=== PATIENT | male | born 1990 | race Caucasian/White ===

== ENCOUNTER → 2022-01-15 15:21 | Outpatient (BNVA) | payer MEDICAID, SELFPAY | PROVIDERS: PCP Nurse Practitioner Family; Visit Provider Urology | DX: N52.9 Male erectile dysfunction, unspecified (principal) | CPT/HCPCS: 99202 ==

== ENCOUNTER → 2022-12-15 09:51 | Outpatient (BNVA) | payer OTHER, SELFPAY | PROVIDERS: PCP Nurse Practitioner Family; Visit Provider Nurse Practitioner Family | DX: N52.9 Male erectile dysfunction, unspecified (principal) | CPT/HCPCS: 99212 ==

== ENCOUNTER 2023-06-17 09:22 | Outpatient (AMB) | payer OTHER, SELFPAY ==
--- NOTE | 2023-06-17 09:33 | A.OFFVIS_ITS ---
Intake Intake Visit Reasons: 6m follow up Intake Note: Patient is present for follow up erectile dysfunction Urology Medications: tadalafil Blood Thinner: none Staff Engineer Required: No Accompanied by: Self / Same As Patient Allergies No Known Allergies Allergy (Verified 06/18/23 08:46) Medication List - Last Reconciled 06/18/23 by JEN Randolph bupropion HCl 300 mg PO QAM bupropion HCl 150 mg PO DAILY buspirone 22.5 mg PO cholecalciferol (vitamin D3) 0 mcg PO fluticasone propionate 50 mcg/actuation 2 sprays intranasal DAILY lamotrigine 0 mg PO loratadine 10 mg PO DAILY losartan 50 mg PO DAILY melatonin 5 mg PO BEDTIME omeprazole 20 mg PO tadalafil 5 mg PO DAILY PRN 30 days tadalafil (Cialis) 5 mg PO DAILY 90 days trazodone 25 mg PO DAILY HPI HPI Comments History of Present Illness Details Julian is a pleasant 32-year-old male patient of Dr. Koch. He has a past medical history of Washington's esophagus, major depression, alcohol dependence however has been sober for 3.5 years, hypertension, and obesity.He presents to the office today for follow-up of his erectile dysfunction. In discussion with the patient today he reports to be doing and feeling well. When asked he reports compliance with 5 mg of Cialis daily. He had previously tried reducing daily dosage to 3 times a week however felt he started having issues with maintaining his erections. He discusses having lost approximately 40 lb over the last few months with better eating habits. Discussed at length importance of losing weight, eating healthy, engaging in activity such as brisk walking, and adequate sleep in relation to erectile dysfunction as well as overall health and well-being. Discussed workup for sleep apnea as patient does endorse to nocturia 2-5 times per night, fatigue, and snoring. Discussed at length lifestyle modifications for improvement in maintaining erections as well as for overall health and well-being. He otherwise denies urinary urgency, urinary frequency, incontinence, hematuria, dysuria, foul smelling urine, changes to urinary stream, flank pain, fever, and or chills. He is happy with his current voiding parameters. In office urinalysis results reviewed with the patient today. He otherwise offers no issues or concerns at this time. In review of patients chart it appears testosterone free and total 12/21-- 312 and 61.5. [facility] Medical History Barretts esophagus Major depression Alcohol dependence HTN (hypertension) Obesity Review of Systems Const Reports as per HPI Eyes Reports no additional complaints ENT Reports no additional complaints Card Reports as per HPI Resp Reports no additional complaints GI Reports as per HPI Reports as per HPI Musc Reports no additional complaints Neuro Reports as per HPI Psych Reports as per HPI Endo Reports no additional complaints Paxton/Lymph Reports no additional complaints Aller/Immun Reports no additional complaints Physical Exam Const General: cooperative, comfortable, no acute distress, well developed, alert and awake Nutritional Appearance: overweight Orientation/consciousness: patient oriented x3 Limitations: no limitations HEENT Head: Yes normal to inspection, Yes normocephalic and Yes atraumatic Ears: hearing grossly normal bilaterally Eyes General: appearance normal, both eyes and all related structures Neck Neck: Yes normal visual inspection and Yes trachea midline Chest Chest palpation & inspection: normal inspection of the chest Resp Effort & Inspection: normal respiratory effort and able to speak in complete sentences Cardio Rate: regular rate GI Inspection: Yes normal to inspection General: Yes no CVA tenderness Back/Spine/Pelvis Back: no CVA tenderness Skin General skin exam: no rashes or lesions noted Neuro General: patient oriented x3 Extrem General: Yes normal to inspection Psych Appearance: grossly normal and well kempt Mental Status: mental status grossly normal Speech and movement: Normal speech and movement present and Clear speech present Affect: normal affect Attitude: cooperative Thought process: Normal thought process present Thought content: Normal thought content present Insight: Fair insight present (Psych) Judgement: Fair judgement present (Psych) Results AMB Urinalysis, Automated UA Leukoctes 0 Fela/uL Last Edit by [employer] on 06/17/23 09:40 UA Nitrite Negative Last Edit by [employer] Brianna on 06/17/23 09:40 UA Urobilinogen 0.2 mg/dL Last Edit by [employer] Brianna on 06/17/23 09:40 UA Protein 0 mg/dL Last Edit by [employer] on 06/17/23 09:40 UA pH 6.0 Last Edit by [employer] Brianna on 06/17/23 09:40 UA Blood 0 Duane/uL Last Edit by Macy Reed on 06/17/23 09:40 UA Specific [place] 1.015 Last Edit by Macy Reed on 06/17/23 09:40 UA Ketone Negative Last Edit by Macy Reed on 06/17/23 09:40 UA Bilirubin 0 mg/dL Last Edit by Macy Reed on 06/17/23 09:40 UA Glucose 0 mg/dL Last Edit by Macy Reed on 06/17/23 09:40 Results Reviewed Results Reviewed: Laboratory Last Values Urine pH (Auto) 6.0 06/17/23 09:38 Specific [place] (Auto) 1.015 06/17/23 09:38 Urine Protein (Auto) 0 mg/dL 06/17/23 09:38 Glucose (UA)(Auto) 0 mg/dL 06/17/23 09:38 Urine Ketones (Auto) Negative 06/17/23 09:38 Urine Blood (Auto) 0 Duane/uL 06/17/23 09:38 Urine Nitrite (Auto) Negative 06/17/23 09:38 Urine Bilirubin (Auto) 0 mg/dL 06/17/23 09:38 Urine Urobilinogen (Auto) 0.2 mg/dL 06/17/23 09:38 Leukocyte Esterase (Auto) 0 Fela/uL 06/17/23 09:38 Assessment & Plan Assessment & Plan (1) Erectile dysfunction: Code(s): N52.9 - Male erectile dysfunction, unspecified (2) Nocturia: Code(s): R35.1 - Nocturia (3) Snoring: Code(s): R06.83 - Snoring (4) Fatigue: Code(s): R53.83 - Other fatigue Plan In office urinalysis results reviewed with the patient today. Continue Cialis 5 mg daily as discussed and prescribed; refill provided Discussed at length and stressed the importance of weight management and daily activity with brisk walking to assist with improvement in maintaining erections as well as for overall health and well-being. Discussed referral for further assessment evaluation of question of sleep apnea; Orders submitted Discussed limiting fluids 3-4 hours prior to bed to assist with decreasing episodes of nocturia. Continue with lifestyle modifications to assist with erectile dysfunction as well as overall health and well-being. Will obtain testosterone free and total Discussed bladder triggers/irritants. Follow-up in 3 months with labs to be completed prior; or sooner with any issues, concerns, and or questions. Orders: Orders AMB Urinalysis Automated 06/17/23 Z13.9 - Encounter for screening, unspecified Testosterone, Free/Total 06/17/23 N52.9 - Male erectile dysfunction, unspecified RT home sleep study 06/17/23 N52.9 - Male erectile dysfunction, unspecified, R06.83 - Snoring, R35.1 - Nocturia, R53.83 - Other fatigue Medications: Discontinued tadalafil administer approximately 30min before sexual activity; do not use more than 1 dose per 24hrs Discontinued Reason: Doctor's Order 5 mg PO DAILY 30 days PRN 30 tabs 5RF sexual activity Patient Instructions: The patient had an opportunity to ask questions regarding the treatment plan. All questions were answered. Physical exam, labs, and imaging were discussed and reviewed in detail. As well as risks, benefits, and discussion of treatment choices. No major barriers to understanding were identified. The patient expressed understanding and agreement with the above treatment plan. The patient was made aware they should contact our office by phone for worsening of their current condition, the appearance of new symptoms, or with any questions or concerns. Compliance is encouraged with any medications and follow up testing that is ordered. It is a privilege to be allowed the opportunity to participate in? your urological care.? Again, if you have any questions or concerns If you have any questions or concerns please do not hesitate to contact me. The office is [phone]. This note is constructed using voice recognition software. While every effort has been made to ensure accuracy bench boring machine operator errors may have been included. Yours sincerely, JEN Randolph Coding Level of Care Code Est Pt Level 3 (71536) Diagnoses Erectile dysfunction N52.9 Nocturia R35.1 Snoring R06.83 Fatigue R53.83
== END 2023-06-17 10:03 | disposition home or self-care (01) ==
PROVIDERS: Visit Provider Nurse Practitioner Family
DX: N52.9 Male erectile dysfunction, unspecified (principal); R35.1 Nocturia; R06.83 Snoring; R53.83 Other fatigue
CPT/HCPCS: 99213

== ENCOUNTER → 2023-06-17 09:22 | Outpatient (BNVA) | payer OTHER, SELFPAY | PROVIDERS: Visit Provider Nurse Practitioner Family | DX: N52.9 Male erectile dysfunction, unspecified (principal); R35.1 Nocturia; R06.83 Snoring; R53.83 Other fatigue | CPT/HCPCS: 81003 ==

== ENCOUNTER → 2023-08-08 09:02 | Outpatient (REF) | payer OTHER, SELFPAY | LOC: HO.SL 09:02 | PROVIDERS: PCP Nurse Practitioner Family; Visit Provider Nurse Practitioner Family | DX: G47.33 Obstructive sleep apnea (adult) (pediatric) (principal); R35.1 Nocturia; R53.83 Other fatigue; R06.83 Snoring; N52.9 Male erectile dysfunction, unspecified | CPT/HCPCS: 95806 ==

== ENCOUNTER → 2023-08-08 09:12 | Outpatient (BNV) | payer OTHER, SELFPAY | PROVIDERS: PCP Nurse Practitioner Family; Visit Provider Internal Medicine | DX: G47.33 Obstructive sleep apnea (adult) (pediatric) (principal) | CPT/HCPCS: 95806 ==

== ENCOUNTER 2023-09-02 15:13 | Outpatient (AMB) | payer OTHER, SELFPAY ==
--- NOTE | 2023-09-02 10:07 | MHC.OFFVIS ---
Intake Vital Signs 09/02/23 15:21 Height 6 ft Weight 227 lb BMI 30.8 BP 124/74 Blood Pressure Location Lt brachial Position Sitting Respiration 14 Pulse 86 Pulse Source Pulse Oximeter Pulse Oximetry (%) 98 Oxygen Delivery Method Room Air Intake Visit Reasons: Sleep apnea Allergies No Known Allergies Allergy (Verified 09/02/23 15:20) Medication List - Last Reconciled 09/02/23 by Dilcia Persaud, INTERVENTIONAL RADIOLOGIST bupropion HCl 300 mg PO QAM bupropion HCl 150 mg PO DAILY buspirone 22.5 mg PO cholecalciferol (vitamin D3) 0 mcg PO fluticasone propionate 50 mcg/actuation 2 sprays intranasal DAILY lamotrigine 0 mg PO loratadine 10 mg PO DAILY losartan 50 mg PO DAILY melatonin 5 mg PO BEDTIME omeprazole 20 mg PO tadalafil (Cialis) 5 mg PO DAILY 90 days trazodone 25 mg PO DAILY HPI Sleep apnea HPI Details Julian is a pleasant 32 year old male, never smoker, with underlying hypertension. He was referred by urology after recent home sleep study revealed moderate KATYA. He was initially sent for a sleep study due to symptoms of daytime fatigue, loud snoring, witnessed apneas and paroxysmal nocturnal dyspnea. He presents today to discuss CPAP therapy. Of note, he reports recent intentional loss of 40 lbs with better eating habits. He denies any personal or family history of respiratory conditions. He currently denies any respiratory symptoms. [facility] Medical History Barretts esophagus Major depression Alcohol dependence HTN (hypertension) Obesity Review of Systems Const Denies chills, Denies excessive sweating, Denies fever(s), Denies headache(s) and Denies night sweats Eyes Denies dry eyes, Denies irritation and Denies itchy eyes ENT Reports Normal hearing present, Denies headache(s), Denies nasal congestion, Denies nasal discharge, Denies post nasal drip and Denies sore throat Card Denies chest pain, Denies chest pain at rest, Denies chest pain with activity, Denies claudication, Denies leg edema, Denies dyspnea, Denies dyspnea on exertion and Denies orthopnea Resp Denies chest congestion, Denies cough, Denies excessive phlegm production, Denies pain on inspiration, Denies pain with cough, Denies dyspnea, Denies dyspnea on exertion, Denies stridor and Denies wheezing Musc Denies myalgias Neuro Reports Normal hearing present and Denies headache(s) Endo Denies excessive sweating Paxton/Lymph Denies lymphadenopathy Aller/Immun Denies itchy eyes, Denies seasonal rhinorrhea and Denies wheezing Physical Exam Vital Signs: Last Vital Signs Pulse 86 09/02/23 15:21 Resp 14 09/02/23 15:21 BP 124/74 09/02/23 15:21 Pulse Ox 98 09/02/23 15:21 Oxygen Delivery Method Room Air 09/02/23 15:21 BMI result Body Mass Index 30.8 Const General: cooperative, healthy appearing, comfortable, no acute distress, well developed and alert Nutritional Appearance: obese Orientation/consciousness: patient oriented x3 Limitations: no limitations HEENT Head: Yes normal to inspection, Yes normocephalic and Yes atraumatic Ears: hearing grossly normal bilaterally and external ears normal Eyes General: appearance normal, both eyes and all related structures Eyelids: Yes eyelids normal Sclerae: sclerae normal EOM: EOMs intact bilaterally Neck Neck: Yes normal visual inspection and Yes no lymphadenopathy Lymphatic: no lymphadenopathy noted Chest Chest palpation & inspection: normal inspection of the chest Resp Effort & Inspection: normal respiratory effort, able to speak in complete sentences, no audible wheezes, no cough, no stridor, not tachypneic, no tripod positioning and no use of accessory muscles Auscultation: clear to auscultation bilaterally Cardio Jugular venous distension: no JVD Rate: regular rate Rhythm: regular rhythm Skin Other: warm, dry General skin exam: no rashes or lesions noted Neuro General: patient oriented x3 Cranial nerves: Yes Normal hearing present Cognition (Neuro): normal cognition Gait exam (Neuro): Normal gait present Extrem General: Yes normal to inspection, Yes capillary refill normal, Yes no clubbing, cyanosis or edema and Yes no pedal edema Psych Appearance: grossly normal and well kempt Speech and movement: Normal speech and movement present and Clear speech present Affect: normal affect Attitude: cooperative Thought process: Normal thought process present Thought content: Normal thought content present Insight: Good insight present (Psych) Judgement: Good judgement present (Psych) Results Reviewed Results Reviewed: Assessment & Plan Assessment & Plan (1) Moderate obstructive sleep apnea: Code(s): G47.33 - Obstructive sleep apnea (adult) (pediatric) Plan Reviewed sleep study results with patient which revealed an AHI of 23 and no significant nocturnal hypoxia. Since patient is quite symptomatic, will start CPAP therapy. Will send in prescription for APAP mode and pressure settings of 6-16 cm with close monitoring for compliance and benefits. Sleep hygiene education reviewed. He is aware if there are any issues with the mask or CPAP machine, he will call the office. All questions were answered and patient is in agreement of plan. Will follow up in 8 weeks. Coding Level of Care Code New Pt Level 3 (76095) Diagnoses Moderate obstructive sleep apnea G47.33
[2023-09-02 15:21] VITALS: BP 124/74; PULSE 86; RESP 14; O2SAT 98; BMI 30.8
== END 2023-09-02 15:52 | disposition home or self-care (01) ==
PROVIDERS: PCP Nurse Practitioner Family; Visit Provider Nurse Practitioner Family
DX: G47.33 Obstructive sleep apnea (adult) (pediatric) (principal)
CPT/HCPCS: 99203

== ENCOUNTER → 2023-09-02 15:13 | Outpatient (BNVA) | payer OTHER, SELFPAY | PROVIDERS: PCP Nurse Practitioner Family; Visit Provider Nurse Practitioner Family ==

== ENCOUNTER 2023-09-21 11:07 | Outpatient (AMB) | payer OTHER, SELFPAY ==
--- NOTE | 2023-09-21 11:10 | A.OFFVIS_ITS ---
Intake Intake Visit Reasons: 3m/lab(set) Intake Note: Patient is present for follow up erectile dysfunction Urology Medications: tadalafil Blood Thinner: none Counselor Nurses[employer] Required: No Accompanied by: Self / Same As Patient Allergies No Known Allergies Allergy (Verified 09/21/23 21:00) Medication List - Last Reconciled 09/21/23 by SAVANNAH Randolph- bupropion HCl 300 mg PO QAM bupropion HCl 150 mg PO DAILY buspirone 22.5 mg PO cholecalciferol (vitamin D3) 0 mcg PO fluticasone propionate 50 mcg/actuation 2 sprays intranasal DAILY lamotrigine 0 mg PO loratadine 10 mg PO DAILY losartan 50 mg PO DAILY melatonin 5 mg PO BEDTIME omeprazole 20 mg PO tadalafil (Cialis) 5 mg PO DAILY 90 days trazodone 25 mg PO DAILY HPI HPI Comments History of Present Illness Details Julian is a pleasant 33-year-old male patient of Dr. Koch. He has a past medical history of Washington's esophagus, major depression, alcohol dependence however has been sober for 4 years, hypertension, and obesity. He presents to the office today for follow-up of his erectile dysfunction. In discussion with the patient today he reports to be doing and feeling well. When asked he reports compliance with 5 mg of Cialis daily. When asked he does report noting improvement in erections with 5 mg of Cialis daily. He discusses having completed sleep study as ordered. It appears patient was diagnosed with sleep apnea and will be receiving his CPAP machine within the next few weeks. He discusses how he continues to lose weight as he has been eating healthier. Discussed at length importance of losing weight, eating healthy, engaging in activity such as brisk walking, and adequate sleep in relation to erectile dysfunction as well as overall health and well-being. Discussed at length lifestyle modifications for improvement in maintaining erections as well as for overall health and well-being. He otherwise denies urinary urgency, urinary frequency, incontinence, hematuria, dysuria, foul smelling urine, changes to urinary stream, flank pain, fever, and or chills. He is happy with his current voiding parameters. In office urinalysis results reviewed with the patient today. He otherwise offers no issues or concerns at this time. 07/09:testosterone 312 free and total 61 .5. [facility] Medical History Barretts esophagus Major depression Alcohol dependence HTN (hypertension) Obesity Review of Systems Const Reports as per HPI Eyes Reports no additional complaints ENT Reports no additional complaints Card Reports as per HPI Resp Reports no additional complaints GI Reports as per HPI Reports as per HPI Musc Reports no additional complaints Neuro Reports as per HPI Psych Reports as per HPI Endo Reports no additional complaints Paxton/Lymph Reports no additional complaints Aller/Immun Reports no additional complaints Physical Exam Const General: cooperative, comfortable, no acute distress, well developed, alert and awake Nutritional Appearance: overweight Orientation/consciousness: patient oriented x3 Limitations: no limitations HEENT Head: Yes normal to inspection, Yes normocephalic and Yes atraumatic Ears: hearing grossly normal bilaterally Eyes General: appearance normal, both eyes and all related structures Neck Neck: Yes normal visual inspection and Yes trachea midline Chest Chest palpation & inspection: normal inspection of the chest Resp Effort & Inspection: normal respiratory effort and able to speak in complete s entences Cardio Rate: regular rate GI Inspection: Yes normal to inspection General: Yes no CVA tenderness Back/Spine/Pelvis Back: no CVA tenderness Skin General skin exam: no rashes or lesions noted Neuro General: patient oriented x3 Extrem General: Yes normal to inspection Psych Appearance: grossly normal and well kempt Mental Status: mental status grossly normal Speech and movement: Normal speech and movement present and Clear speech present Affect: normal affect Attitude: cooperative Thought process: Normal thought process present Thought content: Normal thought content present Insight: Fair insight present (Psych) Judgement: Fair judgement present (Psych) Results AMB Urinalysis, Automated UA Leukoctes 0 Fela/uL Last Edit by Macy Reed on 09/21/23 11:24 UA Nitrite Negative Last Edit by [employer] Reed on 09/21/23 11:24 UA Urobilinogen 0.2 mg/dL Last Edit by [employer] Reed on 09/21/23 11:24 UA Protein 0 mg/dL Last Edit by [employer] Reed on 09/21/23 11:24 UA pH 7.5 Last Edit by [employer] Reed on 09/21/23 11:24 UA Blood 0 Duane/uL Last Edit by [employer] Reed on 09/21/23 11:24 UA Specific [place] 1.010 Last Edit by Macy Reed on 09/21/23 11:24 UA Ketone Negative Last Edit by Macy Reed on 09/21/23 11:24 UA Bilirubin 0 mg/dL Last Edit by Macy [employer] on 09/21/23 11:24 UA Glucose 0 mg/dL Last Edit by Macy [employer] on 09/21/23 11:24 Results Reviewed Results Reviewed: Laboratory Last Values Urine pH (Auto) 7.5 09/21/23 11:14 Specific [place] (Auto) 1.010 09/21/23 11:14 Urine Protein (Auto) 0 mg/dL 09/21/23 11:14 Glucose (UA)(Auto) 0 mg/dL 09/21/23 11:14 Urine Ketones (Auto) Negative 09/21/23 11:14 Urine Blood (Auto) 0 Duane/uL 09/21/23 11:14 Urine Nitrite (Auto) Negative 09/21/23 11:14 Urine Bilirubin (Auto) 0 mg/dL 09/21/23 11:14 Urine Urobilinogen (Auto) 0.2 mg/dL 09/21/23 11:14 Leukocyte Esterase (Auto) 0 Fela/uL 09/21/23 11:14 Assessment & Plan Assessment & Plan (1) Erectile dysfunction: Code(s): N52.9 - Male erectile dysfunction, unspecified (2) Nocturia: Code(s): R35.1 - Nocturia (3) Snoring: Code(s): R06.83 - Snoring (4) Fatigue: Code(s): R53.83 - Other fatigue Plan In office urinalysis results reviewed with the patient today. Continue Cialis 5 mg daily as discussed and prescribed; refill provided Discussed at length and stressed the importance of weight management and daily activity with brisk walking to assist with improvement in maintaining erections as well as for overall health and well-being. Continue to follow-up with pulmonology as discussed Continue with lifestyle modifications to assist with erectile dysfunction as well as overall health and well-being. Will obtain testosterone free and total prior to next office visit in 3 months Discussed bladder triggers/irritants. Follow-up in 3 months with labs to be completed prior; or sooner with any issues, concerns, and or questions. Orders: Orders Testosterone, Free/Total 3 Months E29.1 - Testicular hypofunction, N52.9 - Male erectile dysfunction, unspecified, R35.1 - Nocturia AMB Urinalysis Automated Today Z13.9 - Encounter for screening, unspecified Medications: Refilled tadalafil (Cialis) [facility] DR33 [id number] 5 mg PO DAILY 90 tabs 4RF 90 days Patient Instructions: The patient had an opportunity to ask questions regarding the treatment plan. All questions were answered. Physical exam, labs, and imaging were discussed and reviewed in detail. As well as risks, benefits, and discussion of treatment choices. No major barriers to understanding were identified. The patient expressed understanding and agreement with the above treatment plan. The patient was made aware they should contact our office by phone for worsening of their current condition, the appearance of new symptoms, or with any questions or concerns. Compliance is encouraged with any medications and follow up testing that is ordered. It is a privilege to be allowed the opportunity to participate in? your urological care.? Again, if you have any questions or concerns If you have any questions or concerns please do not hesitate to contact me. The office is [phone]. This note is constructed using voice recognition software. While every effort has been made to ensure accuracy chronic care nurse errors may have been included. Yours sincerely, JEN Randolph Coding Level of Care Code Est Pt Level 3 (49769) Diagnoses Erectile dysfunction N52.9 Nocturia R35.1 Snoring R06.83 Fatigue R53.83
== END 2023-09-21 11:44 | disposition home or self-care (01) ==
LOC: HO.HUSH 11:08
PROVIDERS: PCP Nurse Practitioner Family; Visit Provider Nurse Practitioner Family
DX: N52.9 Male erectile dysfunction, unspecified (principal); R35.1 Nocturia; R06.83 Snoring; R53.83 Other fatigue
CPT/HCPCS: 99213

== ENCOUNTER → 2023-09-21 11:07 | Outpatient (BNVA) | payer OTHER, SELFPAY | PROVIDERS: PCP Nurse Practitioner Family; Visit Provider Nurse Practitioner Family | DX: N52.9 Male erectile dysfunction, unspecified (principal); R35.1 Nocturia; R06.83 Snoring; R53.83 Other fatigue; Z79.899 Other long term (current) drug therapy | CPT/HCPCS: 81003 ==

== ENCOUNTER 2024-01-11 08:48 | Outpatient (AMB) | payer OTHER, SELFPAY ==
--- NOTE | 2024-01-11 08:55 | A.OFFVIS_ITS ---
Intake Visit Reasons: 3m follow up testosterone labs (set) Intake Note: Patient presents for tele visit follow up on: erectile dysfunction and lab results Testosterone: 326; Free Testosterone: 10.1 Urology Medications: tadalafil Blood Thinner: none Director Of Sales And Marketing Required: No Accompanied by: Self / Same As Patient Allergies No Known Allergies Allergy (Verified 01/11/24 09:22) Medication List - Last Reconciled 01/11/24 by SAVANNAH Randolph- bupropion HCl XL 300 mg PO QAM bupropion HCl XL 150 mg PO DAILY buspirone 22.5 mg PO cholecalciferol (vitamin D3) 0 mcg PO fluticasone propionate 50 mcg/actuation 2 sprays intranasal DAILY lamotrigine 0 mg PO loratadine 10 mg PO DAILY losartan 50 mg PO DAILY melatonin 5 mg PO BEDTIME omeprazole 20 mg PO tadalafil (Cialis) 5 mg PO DAILY 90 days trazodone 25 mg PO DAILY HPI Comments Details: Julian is a pleasant 33-year-old male patient of Dr. Koch. He has a past medical history of Washington's esophagus, major depression, alcohol dependence however has been sober for 4-5 years, hypertension, and obesity. He is being followed up on today via video telehealth for his erectile dysfunction. In discussion with the patient today he reports to be doing and feeling well. He reports having called pulmonology earlier this week as he has been unable to be compliant with his CPAP machine as he feels he is unable to sleep with it on. He reports following up with Katarina Bojorquez and is being referred to Plastic surgery for evaluation of inspire device. When asked he reports compliance with 5 mg of Cialis daily. He does report noting improvement in erections with 5 mg of Cialis daily. He discusses feeling ftigued upon wakening. He discusses how he continues to lose weight as he has been eating healthier. Discussed at length importance of losing weight, eating healthy, engaging in activity such as brisk walking, and adequate sleep in relation to erectile dysfunction as well as overall health and well-being. Discussed at length lifestyle modifications for improvement in maintaining erections as well as for overall health and well- being. He otherwise denies urinary urgency, urinary frequency, incontinence, hematuria, dysuria, foul smelling urine, changes to urinary stream, flank pain, fever, and or chills. He is happy with his current voiding parameters. He otherwise offers no issues or concerns at this time. Recent labs reviewed with the patient today as noted and trended below: Testosterone: 07/09 312, 01/08 326 Free and total Testosterone: 07/09 61.5, 01/08 10.1 [facility] Medical History Barretts esophagus Major depression Alcohol dependence HTN (hypertension) Obesity Review of Systems Const Reports as per HPI Eyes Reports no additional complaints ENT Reports no additional complaints Card Reports as per HPI Resp Reports no additional complaints GI Reports as per HPI Reports as per HPI Musc Reports no additional complaints Neuro Reports as per HPI Psych Reports as per HPI Endo Reports no additional complaints Paxton/Lymph Reports no additional complaints Aller/Immun Reports no additional complaints Physical Exam Const General: cooperative, healthy appearing, comfortable, no acute distress, well developed, alert and awake Orientation/consciousness: patient oriented x3 Resp Effort & Inspection: normal respiratory effort and able to speak in complete sentences Neuro General: patient oriented x3 Psych Appearance: grossly normal and well kempt Mental Status: mental status grossly normal Speech and movement: Clear speech present Affect: normal affect Attitude: cooperative Thought process: Normal thought process present Thought content: Normal thought content present Insight: Fair insight present (Psych) Judgement: Fair judgement present (Psych) Telehealth Telehealth Telehealth Platform: [facility] Location of provider rendering services: practice address Location of patient: address on file Patient Identification confirmed using: Name, : Yes Telehealth method: video Patient verbally consented to treatment: Yes Patient verbally consented to billing insurance company: Yes Patient informed of any privacy concerns related to visit: Yes Minutes spent on Phone/Video with Pt.: 15 Assessment & Plan Assessment & Plan (1) Sleep apnea: Code(s): G47.30 - Sleep apnea, unspecified Category: Medical (2) Erectile dysfunction: Code(s): N52.9 - Male erectile dysfunction, unspecified Category: Medical Plan Recent labs reviewed with the patient today as noted and trended above. Continue Cialis 5 mg daily. Information provided for Dr. Nando Coleman's office. Discussed at length lifestyle modifications to assist with ED. Discussed importance of managing sleep apnea for improvement in erections as well as overall health and well-being. He currently denies any bothersome urinary issues or concerns. He reports be happy with current voiding parameters. Follow-up in 3 months; or sooner with any issues, concerns, and or questions. Patient Instructions: The patient had an opportunity to ask questions regarding the treatment plan. All questions were answered. Physical exam, labs, and imaging were discussed and reviewed in detail. As well as risks, benefits, and discussion of treatment choices. No major barriers to understanding were identified. The patient expressed understanding and agreement with the above treatment plan. The patient was made aware they should contact our office by phone for worsening of their current condition, the appearance of new symptoms, or with any questions or concerns. Compliance is encouraged with any medications and follow up testing that is ordered. It is a privilege to be allowed the opportunity to participate in? your urological care.? Again, if you have any questions or concerns If you have any questions or concerns please do not hesitate to contact me. The office is [phone]. This note is constructed using voice recognition software. While every effort has been made to ensure accuracy inspector watch assembly errors may have been included. Yours sincerely, JEN Randolph Coding Level of Care Code Tele Est Pt Level 3 (11053) Diagnoses Sleep apnea G47.30 Erectile dysfunction N52.9
== END 2024-01-11 09:26 | disposition home or self-care (01) ==
LOC: HO.HUSH 08:48
PROVIDERS: PCP Nurse Practitioner Family; Visit Provider Nurse Practitioner Family
DX: G47.30 Sleep apnea, unspecified (principal); N52.9 Male erectile dysfunction, unspecified
CPT/HCPCS: 99213

== ENCOUNTER → 2024-01-11 08:48 | Outpatient (BNVA) | payer OTHER, SELFPAY | PROVIDERS: PCP Nurse Practitioner Family; Visit Provider Nurse Practitioner Family ==

== ENCOUNTER 2024-10-10 10:19 | Outpatient (REF) | payer OTHER, SELFPAY ==
[2024-10-16 08:49] LABS: Testosterone, Free 65 pg/mL (35.0-155.0); Testosterone, Total 377 ng/dL (250-1100)
== END 2024-10-10 10:20 | disposition home or self-care (01) ==
LOC: HO.LAB 10:19
PROVIDERS: PCP Nurse Practitioner Family; Visit Provider Nurse Practitioner Family
DX: E29.1 Testicular hypofunction (principal); R35.1 Nocturia; N52.9 Male erectile dysfunction, unspecified
CPT/HCPCS: 36415; 84402; 84403

== ENCOUNTER 2024-11-26 14:57 | Outpatient (AMB) | payer OTHER, SELFPAY ==
--- NOTE | 2024-11-26 15:31 | MHC.OFFVIS ---
Intake Visit Reasons: F/u Intake Note: Patient is present for F/U Urology Medication:TTADALAFIL Antibiotic Allergy:NONE Blood Thinner:NONE Salesforce Trainer Required: No Allergies No Known Allergies Allergy (Verified 11/26/24 15:32) PFSH Medical History Barretts esophagus Major depression Alcohol dependence HTN (hypertension) Obesity Coding
--- NOTE | 2024-11-26 15:37 | A.OFFVIS_ITS ---
Intake Visit Reasons: F/u Allergies No Known Allergies Allergy (Verified 11/26/24 15:37) Medication List - Last Reconciled 11/26/24 by SAVANNAH Randolph- bupropion HCl XL 300 mg PO QAM bupropion HCl XL 150 mg PO DAILY buspirone 22.5 mg PO cholecalciferol (vitamin D3) 0 mcg PO fluticasone propionate 50 mcg/actuation 2 sprays intranasal DAILY lamotrigine 0 mg PO loratadine 10 mg PO DAILY losartan 50 mg PO DAILY melatonin 5 mg PO BEDTIME tadalafil (Cialis) 5 mg PO DAILY 90 days trazodone 25 mg PO DAILY HPI Comments Details: Julian is a pleasant 34-year-old male patient of Dr. Koch. He has a past medical history of Washington's esophagus, major depression, alcohol dependence however has been sober for 4-5 years, hypertension, and obesity. He is being followed up on today via video telehealth for his erectile dysfunction. In discussion with the patient today he reports to be doing and feeling well. He denies having had any bothersome urinary issues or concerns since his last follow-up. He reports compliance with 5 mg of Cialis daily in discusses how helpful he feels this has been in maintaining his erections. He continues to follow-up with pulmonology through [facility] as he is enquiring potential inspire device for his sleep apnea. He discusses how he continues to lose weight as he has been eating healthier. However does discuss having had some stressful events with change in jobs over the last few months. Discussed at length importance of losing weight, eating healthy, engaging in activity such as brisk walking, and adequate sleep in relation to erectile dysfunction as well as overall health and well-being. Discussed at length lifestyle modifications for improvement in maintaining erections as well as for overall health and well- being. He denies urinary urgency, urinary frequency, incontinence, hematuria, dysuria, foul smelling urine, changes to urinary stream, flank pain, fever, and or chills. He is happy with his current voiding parameters. He otherwise offers no issues or concerns at this time. Recent labs reviewed with the patient today as noted and trended below: Testosterone: 07/09 312, 01/08 326, 10/09 377 Free and total Testosterone: 07/09 61.5, 01/08 10.1, 10/09 65 [facility] Medical History Barretts esophagus Major depression Alcohol dependence HTN (hypertension) Obesity Review of Systems Const Reports as per HPI Eyes Reports no additional complaints ENT Reports no additional complaints Card Reports as per HPI Resp Reports no additional complaints GI Reports as per HPI Reports as per HPI Musc Reports no additional complaints Neuro Reports as per HPI Psych Reports as per HPI Endo Reports no additional complaints Paxton/Lymph Reports no additional complaints Aller/Immun Reports no additional complaints Physical Exam Const General: cooperative, healthy appearing, comfortable, no acute distress, well developed, alert and awake Orientation/consciousness: patient oriented x3 Resp Effort & Inspection: normal respiratory effort and able to speak in complete sentences Neuro General: patient oriented x3 Psych Appearance: grossly normal and well kempt Mental Status: mental status grossly normal Speech and movement: Clear speech present Affect: normal affect Attitude: cooperative Thought process: Normal thought process present Thought content: Normal thought content present Insight: Fair insight present (Psych) Judgement: Fair judgement present (Psych) Telehealth Telehealth Telehealth Platform: Sealed Location of provider rendering services: practice address Location of patient: address on file Patient Identification confirmed using: Name, : Yes Telehealth method: video Patient verbally consented to treatment: Yes Patient verbally consented to billing insurance company: Yes Patient informed of any privacy concerns related to visit: Yes Minutes spent on Phone/Video with Pt.: 15 Assessment & Plan Assessment & Plan (1) Erectile dysfunction: Code(s): N52.9 - Male erectile dysfunction, unspecified Category: Medical Plan Recent testosterone labs were reviewed with the patient today; as noted above. He continues to follow-up with pulmonology regarding inspire device for sleep apnea. He currently denies any bothersome urinary issues or concerns. He reports be happy with current voiding parameters. Continue Cialis 5 mg daily; refill provided. We discussed correlation of sleep apnea in relation to erectile dysfunction as well as overall health and well-being. Follow-up in 6 months; or sooner with any issues, concerns, and or questions. Medications: Refilled tadalafil (Cialis) [facility] [address]33 [id number] 5 mg PO DAILY 90 tabs 3RF 90 days Patient Instructions: The patient had an opportunity to ask questions regarding the treatment plan. All questions were answered. Physical exam, labs, and imaging were discussed and reviewed in detail. As well as risks, benefits, and discussion of treatment choices. No major barriers to understanding were identified. The patient expressed understanding and agreement with the above treatment plan. The patient was made aware they should contact our office by phone for worsening of their current condition, the appearance of new symptoms, or with any questions or concerns. Compliance is encouraged with any medications and follow up testing that is ordered. It is a privilege to be allowed the opportunity to participate in? your urological care.? Again, if you have any questions or concerns If you have any questions or concerns please do not hesitate to contact me. The office is [phone]. This note is constructed using voice recognition software. While every effort has been made to ensure accuracy auto repair technician errors may have been included. Yours sincerely, JEN Randolph Coding Level of Care Code Tele Est Pt Level 3 (84405) Diagnoses Erectile dysfunction N52.9
== END 2024-11-26 15:53 | disposition home or self-care (01) ==
LOC: HO.HUSH 14:57
PROVIDERS: PCP Nurse Practitioner Family; Visit Provider Nurse Practitioner Family
DX: N52.9 Male erectile dysfunction, unspecified (principal)
CPT/HCPCS: 98005

== ENCOUNTER → 2024-11-26 14:57 | Outpatient (BNVA) | payer OTHER, SELFPAY | PROVIDERS: PCP Nurse Practitioner Family; Visit Provider Nurse Practitioner Family ==

== ENCOUNTER 2025-03-25 15:22 | Outpatient (REF) | payer OTHER, SELFPAY ==
--- NOTE | ~2025-03-25 | XR_ITS ---
EXAMINATION: XR THORACIC SPINE CLINICAL INFORMATION: PAIN COMPARISON: None available. TECHNIQUE: AP lateral and swimmer's projections. FINDINGS: There is multilevel endplate sclerosis and small marginal osteophyte formation throughout the axial skeleton. There is 20% volume loss of the vertebral bodies midportion of the thoracic spine. S-shaped curvature of the thoracolumbar spine. No acute cortical disruption. No lytic or blastic lesions. XR/XR thoracic spine 3V IMPRESSION: Multilevel spondylosis and mild scoliosis, thoracic spine. Electronically signed by: Govind Rivas MD 03/25/2025 03:45 PM EDT
--- OUTSIDE RECORDS SUMMARY | 2025-03-25 18:26 | XMS_ITS | Encounter Summary ---
Author Organization [facility] Address [address] [facility] [address] [place] [address] Phone Care Team Providers Care Industrial Cleaner Name Role Phone Myles Turcios MD Unavailable Amalia Saenz NP Unavailable [phone] Vicente Hale MD Unavailable [phone] [facility] MD Unavailable Vicente Hale MD Unavailable [phone] [facility] MD Unavailable [phone] Vicente Hale MD Unavailable [phone] Rogelio Suazo MD Unavailable Feng Rolle MD Unavailable [phone] Nando Loja MD, PhD Unavailable Vicente Hale MD Unavailable [phone] Malina Wheeler PA-C Unavailable Pcp, Unknown Primary Care Provider Unavailabl e Encounter Details Date Type Department Care Team (Late st Contact Info) Description 02/12/2020 Transcribe Orders [facility] Department [address] [place], [place] [id number] Vicente Hale MD [address] [place] [address] [email or web address] Encounter for laboratory testing for COVID-19 virus (Primary Dx) Social History Tobacco Use Types Packs/Day Years Used Date Smoking Tobacco: Never Smokeless Tobacco: Never Alcohol Use Standard Drinks/Week Comments Yes 0 (1 standard drink = 0.6 oz pur e alcohol) 4 nips and a beer with dinner Sex and Gender Information Value Date Recorded Sex Assigned at Not on file Legal Sex Male 5:41 PM EST Gender Identity Not on file Sexual Orientation Not on file Occupation Industry Job Start Date Job End Date Unemployed Not on file Not on file Not on file documented as of this encounter Plan of Treatment Not on file documented as of this encounter Results * COVID-19 PCR Order (02/16/2020 12:54 PM EDT) Specimen Source 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) [facility] COVID Testing Status Sent to [facility] Micro Lab [facility] Other 02/16/2020 12:5 4 PM EDT 02/16/2020 1:57 PM EDT us Vicente Hale MD BODY FLUIDS AND STOOLS ORDERABL ES Final Result Performing Organization Address City/State/[facility] Co de Phone Number [facility] [address] [place] [address] documented in this encounter Visit Diagnoses Diagnosis Encounter for laboratory testing for COVID-19 virus- Primary documented in this encounter Care Teams Industrial Cleaner Relationship Specialty Start Date End Date Pcp, Unknown PCP - General 12/30/23 Myles Turcios MD [email or web address] Internal Medicine 11/07/17 12/29/23 Amalia Saenz NP [address] [place] [address] 11/07/17 12/29/23 Vicente Hale MD [address] [place] [address] [email or web address] Insurance Assigned Provider 04/22/18 05/24/20 Feng Rolle MD [address] [place] [address] [email or web address] Insurance Assigned Provider 05/24/20 08/23/20 Vicente Hale MD [address] [place] [address] [email or web address] Insurance Assigned Provider 08/23/20 09/20/20 Feng Rolle MD [address] [place] [address] [email or web address] Insurance Assigned Provider 09/20/20 05/23/21 Vicente Hale MD [address] [place] [address] [email or web address] Insurance Assigned Provider 05/23/21 08/23/21 Rogelio Suazo MD [address] [place] [address] [place] [phone] [email or web address] Insurance Assigned Provider 08/23/21 09/20/21 Feng Rolle MD [address] [place] [address] [email or web address] Insurance Assigned Provider 09/20/21 05/23/22 Nando Loja MD, PhD [address] [address] [email or web address] Consulting Provider Hematology 10/10/21 09/15/23 Vicente Hale MD [address] [place] [address] [email or web address] Insurance Assigned Provider 05/23/22 08/21/22 Malina Wheeler PA-C [address] [place] [address] [email or web address] Physician Track Vehicle Repairer Hematology 07/05/22 12/29/23 documented as of this encounter Additional Source Comments The information contained in this document represents components of the legal health record. It is not the complete legal health record.[facility]
--- OUTSIDE RECORDS SUMMARY | 2025-03-25 18:26 | XMS_ITS | Encounter Summary ---
Author Organization [facility] Address [address] [facility] [address] [place] [address] Phone Care Team Providers Care Airline Managerial Supervisor Name Role Phone Myles Turcios MD Unavailable Amalia Saenz NP Unavailable Feng Rolle MD Unavailable Vicente Hale MD Unavailable [phone] Rogelio Suazo MD Unavailable [facility] gamb[facility] MD Unavailable [phone] Nando Loja MD, PhD Unavailable Vicente Hale MD Unavailable [phone] Malina Wheeler PA-C Unavailable Pcp, Unknown Primary Care Provider Unavailabl e Encounter Details Date Type Department Care Team (Latest Contact Info) Description 05/11/2021 Transcribe Orders [facility] Laboratory [address] [phone] Pancho Spence MD [address] [address] Washington's esophagus without dysplasia (Primary Dx); Gastroesophageal reflux disease with esophagitis, unspecified whether hemorrhage; Rectal bleeding; Bleeding internal hemorrhoids Social History Tobacco Use Types Packs/Day Years Used Date Smoking Tobacco: Never Smokeless Tobacco: Never Alcohol Use Standard Drinks/Week Comments Not Currently 0 (1 standard drink = 0.6 oz pur e alcohol) quit 14 months ago Sex and Gender Information Value Date Recorded [...] documented as of this encounter Results * (ABNORMAL) Ferritin (05/11/2021 9:20 AM EDT) Pathologist [facility] FERRITIN 16(L) 30 - 400 ug/L [facility] Blood 05/11/2021 9:20 AM EDT 05/11/2021 9:25 AM EDT us Pancho Spence MD LAB BLOOD ORDERABLES Final Resul t Performing Organization Address City/[facility]/ZIP Co de Phone Number [address] [address] * (ABNORMAL) Iron and iron binding capacity (05/11/2021 9:20 AM EDT) Pathologist [facility] IRON 47 45 - 160 ug/dL [facility] IRON BINDING CAPACITY 336 228 - 428 ug/dL [facility] TRANSFERRIN SATURAT. 14(L) 20 - 55 % [facility] Blood 05/11/2021 9:20 AM EDT 05/11/2021 9:25 AM EDT us Pancho Spence MD LAB BLOOD ORDERABLES Final Resul t [address] [address] * (ABNORMAL) CBC (05/11/2021 9:20 AM EDT) Pathologist [facility] WBC 7.31 4.00 - 11.00 K/uL [facility] RBC 5.69 4.23 - 5.82 M/uL [facility] HGB 13.3(L) 13.4 - 17.5 g/dL [facility] HCT 42.1 37.0 - 51.0 % [facility] PLT 258 140 - 430 K/uL [facility] MCV 74.0(L) 78.0 - 97.0 fL [facility] MCH 23.4(L) 25.0 - 33.0 pg [facility] MCHC 31.6(L) 32.0 - 36.0 g/dL [facility] RDW 18.5(H) 11.0 - 15.0 % [facility] MPV 10.7 8.4 - 12.8 fl [facility] NRBC 0.00 0 /100 WBCs [facility] ABSOLUTE NRBC 0.00 0 K/uL [facility] Blood 05/11/2021 9:20 AM EDT 05/11/2021 9:25 AM EDT us Pancho Spence MD LAB BLOOD ORDERABLES Final Resul t [facility] [address] [place] [address] documented in this encounter Visit Diagnoses Diagnosis Washington's esophagus without dysplasia- Primary Gastroesophageal reflux disease with esophagitis, unspecified whether hemorrhage Rectal bleeding Hemorrhage of rectum and anus Bleeding internal hemorrhoids Internal hemorrhoids with other complication documented in this encounter Care Teams Airline Managerial Supervisor Relationship Specialty Start Date End Date Pcp, Unknown PCP - General 12/30/23 Myles Turcios MD [email or web address] Internal Medicine 11/07/17 12/29/23 Amalia Saenz NP [address] [place] [address] 11/07/17 12/29/23 Feng Rolle MD [address] [place] [address] [email or web address] Insurance Assigned Provider 09/20/20 05/23/21 Vicente Hale MD [address] [place] [address] [email or web address] Insurance Assigned Provider 05/23/21 08/23/21 Rogelio Suazo MD [address] [place] [phone] [email or web address] Insurance Assigned Provider 08/23/21 09/20/21 Feng Rolle MD [address] [place] [address] [email or web address] Insurance Assigned Provider 09/20/21 05/23/22 Nando Loja MD, PhD [address] [place] [phone] [email or web address] Consulting Provider Hematology 10/10/21 09/15/23 Vicente Hale MD [address] [place] [address] [email or web address] Insurance Assigned Provider 05/23/22 08/21/22 Malina Wheeler PA-C [address] [place] [address] [email or web address] Physician Catering Director Hematology 07/05/22 12/29/23 documented as of this encounter Additional Source Comments The information contained in this document represents components of the legal health record. It is not the complete legal health record.[facility]
--- OUTSIDE RECORDS SUMMARY | 2025-03-25 18:26 | XMS_ITS | Encounter Summary ---
Author Organization [facility] Address [address] [facility] [address] [place] [address] Phone Care Team Providers Care Institute Scientist Name Role Phone Myles Turcios MD Unavailable Amalia Saenz NP Unavailable Nando Loja MD, PhD Unavailable Malina Wheeler PA-C Unavailable [phone] Pcp, Unknown Primary Care Provider Unavailabl e Encounter Details Date Type Department Care Team (Late st Contact Info) Description 04/14/2023 Procedure Pass [facility] Endoscopy Admitting Dept Virtual Department [address] [place] [address] [id number] Social History Tobacco Use Types Packs/Day Years Used Date Smoking Tobacco: Never Smokeless Tobacco: Never Alcohol Use Standard Drinks/Week Comments Not Currently 0 (1 standard drink = 0.6 oz pur e alcohol) quit 14 months ago Education Answer Date Recorded Are you interested in more education? Not on hilario e 11/13/2022 Are you concerned about learning? Not on file 11/13/2022 No 11/13/2022 No 11/13/2022 Digital Access Answer Date Recorded No 12/08/2022 No 12/08/2022 Reliable internet access at home? Not on file 12/08/2022 Device with a working camera? Not on file Intimate Partner Violence Answer Date R ecorded Are you denied basic needs s uch as food, clothing, or medical care? No 04/14/2023 In the past 12 months have y ou been in a relationship with a person who hurts, threatens, or tries to control you? No 04/14/2023 Are you denied basic needs s uch as food, clothing, or medical care? No 04/14/2023 In the past 12 months have y ou been in a relationship with a person who hurts, threatens, or tries to control you? No 04/14/2023 Sex and Gender Information Value Date Recorded Sex Assigned at Not on file Legal Sex Male 5:41 PM EST Gender Identity Not on file Sexual Orientation Not on file Occupation Industry Job Start Date Job End Date Unemployed Not on file Not on file Not on file documented as of this encounter Plan of Treatment Not on file documented as of this encounter Visit Diagnoses Not on filedocumented in this encounter Care Teams Institute Scientist Relationship Specialty Start Date End Date Pcp, Unknown PCP - General 12/30/23 Myles Turcios MD [email or web address] Medicine 11/07/17 12/29/23 Amalia Saenz NP [address] [place] [address] 11/07/17 12/29/23 Nando Loja MD, PhD [address] [place] [address] [email or web address] Consulting Provider Hematology 10/10/21 09/15/23 Malina Wheeler PA-C [address] [place] [address] [email or web address] Physician Pressure Dispatcher Hematology 07/05/22 12/29/23 documented as of this encounter Additional Source Comments The information contained in this document represents components of the legal health record. It is not the complete legal health record.[facility]
--- OUTSIDE RECORDS SUMMARY | 2025-03-25 18:26 | XMS_ITS | Encounter Summary ---
Author Organization [facility] Address [facility] [employer] [facility] [address] [place] [address] Phone Care Team Providers Care Housekeeping Attendant Name Role Phone Myles Turcios MD Unavailable Amalia Saenz MANAGER SUPPLY CHAIN PLANNING Unavailable Feng Rolle MD Unavailable Vicente Hale MD Unavailable [phone] Rogelio Suazo MD Unavailable Feng Rolle MD Unavailable [phone] Nando Loja MD, PhD Unavailable Vicente Hale MD Unavailable [phone] Malina Wheeler PA-C Unavailable [phone] Pcp, Unknown Primary Care Provider Unavailabl e Encounter Details Date Type Department Care Team (Late st Contact Info) Description 03/19/2021 Procedure Pass [facility] Endoscopy Admitting Dept Virtual Department [address] [place] [address] Social History Tobacco Use Types Packs/Day Years [...] on filedocumented in this encounter Care Teams Housekeeping Attendant Relationship Specialty Start Date End Date Pcp, Unknown PCP - General 12/30/23 Myles Turcios MD [email or web address] Internal Medicine 11/07/17 12/29/23 Amalia Saenz NP [address] [place] [address] 11/07/17 12/29/23 Feng Rolle MD [address] [place] [address] [email or web address] Insurance Assigned Provider 09/20/20 05/23/21 Vicente Hale MD [address] [place] [address] [email or web address] Insurance Assigned Provider 05/23/21 08/23/21 Rogelio Suazo MD [address] [place] [phone] [email or web address] Insurance Assigned Provider 08/23/21 09/20/21 Feng Rolle MD [address] [place] [address] [email or web address] Insurance Assigned Provider 09/20/21 05/23/22 Nando Loja MD, PhD [address] [address] [email or web address] Consulting Provider Hematology 10/10/21 09/15/23 Vicente Hale MD [address] [place] [address] [email or web address] Insurance Assigned Provider 05/23/22 08/21/22 Malina Wheeler PA-C [address] [place] [address] [email or web address] Physician Custodian Athletic Equipment Hematology 07/05/22 12/29/23 documented as of this encounter Additional Source Comments The information contained in this document represents components of the legal health record. It is not the complete legal health record.[facility]
--- OUTSIDE RECORDS SUMMARY | 2025-03-25 18:26 | XMS_ITS | Clinical Summary ---
Author Organization [facility] Address [address] [address] Phone Care Team Providers Care Sheet Metal Superintendent Name Role Phone Pcp, Unknown Primary Care Provider Unavailabl e Allergies No known active allergies Medications buPROPion (WELLBUTRIN SR) 150 MG SR 12 hr tablet Take 150 mg by mouth daily. Active buPROPion (WELLBUTRIN) 100 MG immediate release tablet Take 100 mg by mouth daily. Active escitalopram oxalate (LEXAPRO) 10 MG tablet Take 10 mg by mouth daily. Active busPIRone (BUSPAR) 15 MG tablet Take 15 mg by mouth 2 (two) times a day. Active hydroCHLOROthia zide (MICROZIDE) 12.5 mg capsule Take 12.5 mg by mouth daily. Active losartan (COZAAR) 50 MG tablet Take 50 mg by mouth daily. Active MELATONIN ORAL Take 1 tablet by mouth nightly at bedtime. Active omeprazole (PRILOSEC) 20 MG capsule Take 20 mg by mouth daily. Active traZODone (DESYREL) 50 MG tablet Take 50 mg by mouth nightly at bedtime. Active lamoTRIgine (LAMICTAL) 25 MG IMMEDIATE release tablet Take 37.5 mg by mouth daily. 03/15/2023 Active buPROPion (WELLBUTRIN XL) 300 MG ER 24 hr tablet Take 1 tablet by mouth every morning. 02/21/2023 Active buPROPion (WELLBUTRIN XL) 150 MG ER 24 hr tablet TAKE 1 TABLET BY MOUTH EVERY DAY TAKE WITH 300MG TABLET FOR TOTAL DOSE OF 450MG 03/15/2023 Active tadalafiL (CIALIS) 5 MG tablet Take 1 tablet by mouth every morning. 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 Overview (09/07/2014): Marcellus de la Tourette's syndrome Immunizations Immunization Administration Dates Next Due COVID-19 (Pre-05/09) Pfizer Vaccine, mRNA, PF 11/09/2020 DTaP, unspecified formulation 08/29/1995 ,03/27/1992,03/29/1991,1990,1990 Hepatitis A, Unspecified 10/02/1998,03/27/1998,0 02/20/1998 Hib, unspecified formulation 12/27/1991, 03/29/1991,02/01/1991,1990 Influenza Quadrivalent Prese rvative Free IM 04/13/2023,09/03/2022,06/23/2021,2019,06/07/2018 MMR 08/29/1995,12/27/1991 Polio, Unspecified Formulation 6,03/27/1992,02/01/1991,1990 Td, unspecified formulation 07/18/2011, 3 Tdap 10/27/2021,06/07/2018 Family History Medical History Relation Comments No Known Problems Brother 1 Other Brother 2 Half-sibling fro m father Heart attack Father Age 60s Parkinson's disease Father No Known Problems Mother Other Sister Half-sibling fro m father Breast cancer Neg Hx Colon cancer Neg Hx Diabetes Neg Hx Prostate cancer Neg Hx Stroke Neg Hx Relation Status Comments Brother 1 Alive Brother 2 Alive Father (Age 70) Maternal Grandfather Maternal Grandmother Mother Alive Paternal Grandfather Paternal Grandmother Sister Alive Social History Tobacco Use Types Packs/Day Years [...] file Not on file Not on file Last Filed Vital Signs Vital Sign Reading Time Taken Comments Blood Pressure 123/79 12/26/2023 5:42 PM EDT Pulse 75 12/26/2023 5:42 PM EDT Temperature 36.6 C (97.8 F) 12/26/2023 5:42 PM EDT Respiratory Rate 12 12/26/2023 5:42 PM EDT Oxygen Saturation 97% 12/26/2023 5:42 PM EDT Inhaled Oxygen Concentration - - Weight 102.1 kg (225 lb) 04/13/2023 1:03 PM EDT Height 182.9 cm (6') 04/13/2023 1:03 PM EDT Body Mass Index 30.52 04/13/2023 1:03 PM EDT Plan of Treatment Health Maintenance Due Date Last Done Comments DEPRESSION SCREENING 2002 HIV ONE-TIME SCREENING (18-65 YEARS) 2008 CREATININE LEVEL 11/07/2018 11/07/2017, 05/27/2013 POTASSIUM LEVEL 11/07/2018 11/07/2017, 05/27/2013 COVID-19 VACCINE ( season) 2024 09/03/2022, 07/15/2021, 07/15/2021, Additional history exists Adult Td,Tdap Booster 10/28/2031 10/27/2021 , 06/07/2018, 07/18/2011, Additional history exists HIB VACCINES Completed 12/27/1991, 03/18, 02/01/1991, Additional history exists HEPATITIS A VACCINES Completed 10/02/1998, 03/27/1998, 02/20/1998 HEPATITIS C SCREENING Completed 04/11/2020 SMOKING STATUS SCREENING (Once After 26 Yrs) Completed 12/26/2023 MENINGOCOCCAL VACCINES (ACWY) Aged Out No longer eligible based on patient's age to complete this topic MENINGOCOCCAL VACCINES (B) Aged Out N o longer eligible based on patient's age to complete this topic PNEUMOCOCCAL VACCINES (0-49 years) Aged Out No longer eligible based on patient's age to complete this topic Medical Devices Not on file Procedures Procedure Name Priority Date/Time Associated Diagnosis Comments COMPREHENSIVE METABOLIC PANEL Routine 11/07/2017 2:20 PM EDT Non morbid obesity Alcohol abuse from Last 3 Months or Most Recently Relevant to Health Maintenance Results * (ABNORMAL) Comprehensive metabolic panel (11/07/2017 2:20 PM EDT) SODIUM 142 133 - 146 mmol/L [facility] POTASSIUM 5.1 3.3 - 5.1 mmol/L [facility] CHLORIDE 100 96 - 108 mmol/L [facility] CO2 29 21 - 35 mmol/L [facility] BUN 12 6 - 19 mg/dL [facility] CREATININE 0.80 0.5 - 1.5 mg/dL [facility] GLUCOSE 110(H) 70 - 99 mg/dL [facility] ALBUMIN 4.8 3.9 - 4.8 g/dL [facility] TOTAL PROTEIN 8.2(H) 6.5 - 8.0 g/dL [facility] CALCIUM 9.9 8.4 - 10.3 mg/dL [facility] ALKALINE PHOSPHATASE 72 39 - 117 U/L [facility] TOTAL BILIRUBIN 0.4 0.0 - 1.2 mg/dL [facility] AST 25 0 - 37 U/L [facility] ALT 43(H) 0 - 40 U/L [facility] GLOBULIN 3.4 1 - 4.8 g/dL [facility] EGFR >120 >59 mL/min/1.7 3m2 [facility] Comment:If patient is black, multiply result by 1.159. The eGFR calculation has changed from the MDRD equation to the CKD-EPI equation as of September 20, 2017. ANION GAP 18 10 - 20 mmol/L [facility] Blood 11/07/2017 2:20 PM EDT 11/07/2017 2:26 PM EDT Kavita Stock STOCKROOM CLERK LAB BLOOD ORDERABLES Ann-Marie ascencio Result Performing Organization Address City/State/[facility] Co de Phone Number [address] [address] from Last 3 Months or Most Recently Relevant to Health Maintenance Insurance [facility] DIRECT [employer] [place] [address] [place] [address] [place] [address] [place] [address] [employer] [place] [place] [address] [employer] Care Teams Sheet Metal Superintendent Relationship Specialty Start Date End Date Pcp, Unknown PCP - General 12/30/23 Additional Source Comments The information contained in this document represents components of the legal health record. It is not the complete legal health record.[facility]
--- OUTSIDE RECORDS SUMMARY | 2025-03-25 18:26 | XMS_ITS | Encounter Summary ---
Author Organization [facility] Address [address] [employer] Management [employer] [facility] [address] [place] [address] Phone Care Team Providers Care Screen Printing Inspector Name Role Phone Kavita Stock CNP Primary Care Provider [phone] Myles Turcios MD Unavailable [phone] Amalia Saenz NP Unavailable Vicente Hale MD Unavailable [phone] Feng Rolle MD Unavailable [phone] Vicente Hale MD Unavailable [phone] Feng Rolle MD Unavailable Vicente Hale MD Unavailable [phone] Rogelio Suazo MD Unavailable [facility] Unavailable [phone] Nando Loja MD, PhD Unavailable [phone] Vicente Hale MD Unavailable [phone] Malina Wheeler PA-C Unavailable Pcp, Unknown Primary Care Provider Unavailabl e Encounter Details Date Type Department Care Team (Late st Contact Info) Description 06/07/2018 Ancillary Orders Virtual Department [address] [place] [address] Aminata Koch, ZULY [address] [place] [address] Paresthesia Social History Tobacco Use Types Packs/Day Years [...] documented as of this encounter Results * CT HEAD WITHOUT CONTRAST (06/20/2018 11:06 AM EST) Anatomical Region Laterality Modality Head Computed Tomogra phy 06/20/2018 11:0 9 AM EST Impressions 06/20/2018 11:13 AM EST Otherwise likely a prominent left-sided Virchow-José space the examination is unremarkable. No definitive explanation for bilateral facial paresthesias/numbness noted. TOTAL CTDIvol: 52.70 mGy S/S: Bilateral facial paresthesias/numbness. . POS - [id number] Narrative 06/20/2018 11:13 AM EST COMPARISON: None TECHNIQUE: Nonenhanced head CT from skull base to vertex with multi-planar reformats. Manual dose reduction technique tailored for patient and site of imaging. CT HEAD FINDINGS: The ventricular system is of normal size and position. No extra axial fluid collection or mass effect is seen. No shift of midline structures is noted. There is an area low-density evident in the left external capsule region which may be a prominent Virchow-José space. No mass effect is seen. No findings of definitive acute infarct or acute intracranial hemorrhage are evident. The sinuses are clear. There is normal aeration of the mastoid air cells. The cerebellar tonsils are normal in position. Sella turcica is unremarkable. Procedure Note Prem Salinas MD - 06/20/2018 COMPARISON: None TECHNIQUE: Nonenhanced head CT from skull base to vertex with multi- planarreformats. Manual dose reduction technique tailored for patient and siteof imaging. CT HEAD FINDINGS: The ventricular system is of normal size and position. No extra axial fluid collection or mass effect is seen. No shift ofmidline structures is noted. There is an area low-density evident in the left external capsule regionwhich may be a prominent Virchow-José space. No mass effect is seen. No findings of definitive acute infarct or acute intracranial hemorrhageare evident. The sinuses are clear. There is normal aeration of the mastoid aircells. The cerebellar tonsils are normal in position. Sella turcica isunremarkable. IMPRESSION: Otherwise likely a prominent left-sided Virchow-José space theexamination is unremarkable. No definitive explanation for bilateralfacial paresthesias/numbness noted. TOTAL CTDIvol: 52.70 mGy S/S: Bilateral facial paresthesias/numbness. . POS - [id number] Aminata Koch ROD CUP FILLER IMG CT HEAD/NECK Final Re sult documented in this encounter Visit Diagnoses Diagnosis Paresthesia Disturbance of skin sensation Paresthesia Disturbance of skin sensation documented in this encounter Care Teams Screen Printing Inspector Relationship Specialty Start Date End Date Kavita Stock CNP [address] [place] [address], [address] [place] [address] [email or web address] PCP - General Family Medicine 11/07/17 06/19/18 Pcp, Unknown PCP - General 12/30/23 Myles Turcios MD [address] [place] [address], [address] [place] [address] [email or web address] Medicine 11/07/17 12/29/23 Amalia Saenz NP [address] [place] [address] 11/07/17 12/29/23 Vicente Hale MD [address] [place] [phone] [email or web address] Insurance Assigned Provider 04/22/18 05/24/20 Feng Rolle MD [address] [place] [address] [email or web address] Insurance Assigned Provider 05/24/20 08/23/20 Vicente Hale MD [address] [place] [address] [email or web address] Insurance Assigned Provider 08/23/20 09/20/20 Feng Rolle MD [address] [place] [address] [email or web address] Insurance Assigned Provider 09/20/20 05/23/21 Vicente Hale MD [address] [place] [address] [email or web address] Insurance Assigned Provider 05/23/21 08/23/21 Rogelio Suazo MD [address] [place] [address] [address] [place] [phone] [email or web address] Insurance Assigned Provider 08/23/21 09/20/21 Feng Rolle MD [address] [place] [address] Insurance Assigned Provider 09/20/21 05/23/22 Nando Loja MD, PhD [address] [address] [email or web address] Consulting Provider Hematology 10/10/21 09/15/23 Vicente Hale MD [address] [place] [phone] Insurance Assigned Provider 05/23/22 08/21/22 Malina Wheeler PA-C [address] [place] [phone] Physician Blanket Winder Helper Hematology 07/05/22 12/29/23 documented as of this encounter Additional Source Comments The information contained in this document represents components of the legal health record. It is not the complete legal health record.[facility]
== END 2025-03-25 15:23 | disposition home or self-care (01) ==
LOC: HO.XRAY 15:22
PROVIDERS: Visit Provider Nurse Practitioner Women's Health
DX: M54.6 Pain in thoracic spine (principal)
CPT/HCPCS: 72072

== ENCOUNTER → 2025-03-25 15:35 | Outpatient (BNV) | payer OTHER, SELFPAY | PROVIDERS: Visit Provider Radiology Diagnostic Radiology | DX: M54.6 Pain in thoracic spine (principal) | CPT/HCPCS: 72072 ==

== ENCOUNTER 2025-04-25 11:47 | Outpatient (REF) | payer OTHER, SELFPAY ==
--- NOTE | ~2025-04-25 | XR_ITS ---
Exam: Five-view lumbar spine TECHNIQUE: AP, lateral, lateral spot, and bilateral oblique x-rays lumbar spine History of low back pain COMPARISON: None FINDINGS: The stomach, small, and large bowel gas is visible. There are 5 non-rib bearing lumbar segments. There is mild wedging of T12. T12-L1: There is mild disc space narrowing. L1-L2: There is mild disc space narrowing. L2-L3: There is subtle retrolisthesis and mild disc space narrowing with small endplate osteophytes. L3-L4: There is mild to moderate disc space narrowing with subtle retrolisthesis and endplate osteophytes. L4-L5: There is a pars interarticularis defects with grade 1 anterolisthesis. There is moderate disc space narrowing and endplate osteophytes. L5-S1: Unremarkable XR/XR lumbar spine 4V min IMPRESSION: L4-5 demonstrates pars interarticularis defects with grade 1 anterolisthesis. There is also moderate narrowing of the disc space. Mild wedging of T12 is likely physiologic in nature. Correlate for signs and symptoms of acute pain in this region. Electronically signed by: Efrain Hurst MD 04/25/2025 12:52 PM EDT
== END 2025-04-25 11:48 | disposition home or self-care (01) ==
LOC: HO.XRAY 11:47
PROVIDERS: PCP Nurse Practitioner Family; Visit Provider Nurse Practitioner Women's Health
DX: M47.816 Spondylosis without myelopathy or radiculopathy, lumbar region (principal)
CPT/HCPCS: 72110

== ENCOUNTER → 2025-04-25 12:35 | Outpatient (BNV) | payer OTHER, SELFPAY | PROVIDERS: PCP Nurse Practitioner Family; Visit Provider Radiology Diagnostic Radiology | DX: M43.16 Spondylolisthesis, lumbar region (principal) | CPT/HCPCS: 72110 ==

== ENCOUNTER 2025-04-26 14:06 | Outpatient (RCR) | payer OTHER, SELFPAY ==
[2025-03-08 13:03] VITALS: BP 118/73; PULSE 93
== END 2025-04-26 14:55 | disposition home or self-care (01) ==
LOC: HO.PT 14:06
PROVIDERS: PCP Nurse Practitioner Family; Visit Provider Nurse Practitioner Women's Health
DX: M54.2 Cervicalgia (principal)
CPT/HCPCS: 97110; 97112; 97161; 97530

== ENCOUNTER 2025-05-27 09:24 | Outpatient (AMB) | payer OTHER, SELFPAY ==
--- NOTE | 2025-05-27 09:25 | A.OFFVIS_ITS ---
Intake Visit Reasons: 6m follow up Intake Note: Patient presents for 6 mo follow up Referral to Surveying Crew Rodman : has contacted roll finisher juan j of inspire sleep apnea device and it was not approved by insurance Urology Medications: tadalafil Blood Thinner: none Hair Machine Operator Required: No Accompanied by: Self / Same As Patient Allergies No Known Allergies Allergy (Verified 05/27/25 21:41) Medication List - Last Reconciled 05/27/25 by SAVANNAH Randolph- bupropion HCl XL 300 mg PO QAM bupropion HCl XL 150 mg PO DAILY buspirone 22.5 mg PO cholecalciferol (vitamin D3) 0 mcg PO fluticasone propionate 50 mcg/actuation 2 sprays intranasal DAILY lamotrigine 0 mg PO loratadine 10 mg PO DAILY losartan 50 mg PO DAILY melatonin 5 mg PO BEDTIME tadalafil (Cialis) 5 mg PO DAILY 90 days trazodone 25 mg PO DAILY HPI Comments Details: Julian is a pleasant 34-year-old male patient of Dr. Koch. He has a past medical history of Washington's esophagus, major depression, alcohol dependence however has been sober for over 5 years, hypertension, and obesity. He presents to the office today for follow-up of his erectile dysfunction. In discussion with the patient today he continues to report compliance with low- dose tadalafil daily. He discusses how helpful this has been. He denies having had any issues with erectile dysfunction. He continues to follow-up with pulmonology through [facility] in awaiting approval for inspire device however most recently was told by his insurance he needs to undergo mandibular implant prior. He discusses his frustration regarding this issue. He continues to intentionally attempt to lose weight with better eating habits. 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 He currently denies any bothersome urinary issues or concerns. We did discuss imp ortance of lifestyle modifications to assist with overall health and well-being. He denies urinary urgency, urinary frequency, incontinence, hematuria, dysuria, foul smelling urine, changes to urinary stream, flank pain, fever, and or chills. He is happy with his current voiding parameters. He otherwise offers no issues or concerns at this time. Recent labs reviewed with the patient today as noted and trended below: Testosterone: 07/09 312, 01/08 326, 10/09 377 Free and total Testosterone: 07/09 61.5, 01/08 10.1, 10/09 65 PFS Medical History Barretts esophagus Major depression Alcohol dependence HTN (hypertension) Obesity Review of Systems Const Reports as per HPI Eyes Reports no additional complaints ENT Reports no additional complaints Card Reports as per HPI Resp Reports no additional complaints GI Reports as per HPI Reports as per HPI Musc Reports no additional complaints Neuro Reports as per HPI Psych Reports as per HPI Endo Reports no additional complaints Paxton/Lymph Reports no additional complaints Aller/Immun Reports no additional complaints Physical Exam Const General: cooperative, healthy appearing, comfortable, no acute distress, well developed, alert and awake Nutritional Appearance: overweight Orientation/consciousness: patient oriented x3 Limitations: no limitations HEENT Head: Yes normal to inspection, Yes normocephalic and Yes atraumatic Ears: hearing grossly normal bilaterally Eyes General: appearance normal, both eyes and all related structures Neck Neck: Yes normal visual inspection and Yes trachea midline Chest Chest palpation & inspection: normal inspection of the chest Resp Effort & Inspection: normal respiratory effort and able to speak in complete se ntences Cardio Rate: regular rate GI Inspection: Yes normal to inspection General: Yes no CVA tenderness Back/Spine/Pelvis Back: no CVA tenderness Skin General skin exam: no rashes or lesions noted Neuro General: patient oriented x3 Extrem General: Yes normal to inspection Psych Appearance: grossly normal and well kempt Mental Status: mental status grossly normal Speech and movement: Normal speech and movement present and Clear speech present Affect: normal affect Attitude: cooperative Thought process: Normal thought process present Thought content: Normal thought content present Insight: Fair insight present (Psych) Judgement: Fair judgement present (Psych) Results AMB Urinalysis, Automated UA Leukoctes 0 Fela/uL Last Edit by SALVADOR Molina on 05/27/25 09:37 UA Nitrite Negative Last Edit by SALVADOR Molina on 05/27/25 09:37 UA Urobilinogen 0.2 mg/dL Last Edit by Verito Carmona CCM on 05/27/25 09:37 UA Protein 0 mg/dL Last Edit by Verito Carmona CCM on 05/27/25 09:37 UA pH 6.0 Last Edit by Verito Carmona SALVADOR on 05/27/25 09:37 UA Blood 0 Duane/uL Last Edit by [facility] on 05/27/25 09:37 UA Specific Bryant 1.005 Last Edit by Verito Carmona [facility] on 05/27/25 09:3 7 UA Ketone Negative Last Edit by Verito Carmona [facility] on 05/27/25 09:37 UA Bilirubin 0 mg/dL Last Edit by Verito Carmona [facility] on 05/27/25 09:37 UA Glucose 0 mg/dL Last Edit by Verito Carmona [facility] on 05/27/25 09:37 Results Reviewed Results Reviewed: Laboratory Last Values Urine pH (Auto) 6.0 05/27/25 09:36 Specific Bryant (Auto) 1.005 05/27/25 09:36 Urine Protein (Auto) 0 mg/dL 05/27/25 09:36 Glucose (UA)(Auto) 0 mg/dL 05/27/25 09:36 Urine Ketones (Auto) Negative 05/27/25 09:36 Urine Blood (Auto) 0 Duane/uL 05/27/25 09:36 Urine Nitrite (Auto) Negative 05/27/25 09:36 Urine Bilirubin (Auto) 0 mg/dL 05/27/25 09:36 Urine Urobilinogen (Auto) 0.2 mg/dL 05/27/25 09:36 Leukocyte Esterase (Auto) 0 Fela/uL 05/27/25 09:36 Assessment & Plan Assessment & Plan (1) Erectile dysfunction: Code(s): N52.9 - Male erectile dysfunction, unspecified Category: Medical Plan He currently denies any bothersome urinary issues or concerns. He continues to follow-up with pulmonology regarding inspire device for sleep apnea. He currently denies any bothersome urinary issues or concerns. He reports be happy with current voiding parameters. Continue Cialis 5 mg daily; refill provided. We discussed correlation of sleep apnea in relation to erectile dysfunction as well as overall health and well-being. Will obtain testosterone in 6 months Follow-up in 6 months with labs prior; or sooner with any issues, concerns, and or questions. Orders: Orders Testosterone, Free/Total 6 Months N52.9 - Male erectile dysfunction, unspecified Medications: Refilled tadalafil (Cialis) [facility] DR33 [id number] 5 mg PO DAILY 90 tabs 3RF 90 days Patient Instructions: The patient had an opportunity to ask questions regarding the treatment plan. All questions were answered. Physical exam, labs, and imaging were discussed and reviewed in detail. As well as risks, benefits, and discussion of treatment choices. No major barriers to understanding were identified. The patient expressed understanding and agreement with the above treatment plan. The patient was made aware they should contact our office by phone for worsening of their current condition, the appearance of new symptoms, or with any questions or concerns. Compliance is encouraged with any medications and follow up testing that is ordered. It is a privilege to be allowed the opportunity to participate in? your urological care.? Again, if you have any questions or concerns If you have any questions or concerns please do not hesitate to contact me. The office is [phone]. This note is constructed using voice recognition software. While every effort has been made to ensure accuracy bullet lubricating machine operator errors may have been included. Yours sincerely, JEN Randolph Coding Level of Care Code Est Pt Level 3 (51422) Diagnoses Erectile dysfunction N52.9
--- OUTSIDE RECORDS SUMMARY | 2025-05-27 10:24 | XMS_ITS | Encounter Summary ---
Author Organization [facility] Address [facility] [address] [place] [address] Phone Care Team Providers Care Sailboat Captain Name Role Phone Myles Turcios MD Unavailable Amalia Saenz RESTORATION OFFICER Unavailable Feng Rolle MD Unavailable Vicente Hale MD Unavailable [phone] Rogelio Suazo MD Unavailable Feng Rolle MD Unavailable Nando Loja MD, PhD Unavailable Vicente Hale MD Unavailable [phone] Malina Wheeler PA-C Unavailable [phone] Pcp, Unknown Primary Care Provider Unavailabl e Encounter Details Date Type Department Care Team (Late st Contact Info) Description 03/19/2021 Procedure Pass [facility] Endoscopy Admitting Dept Virtual Department [address] [place] [address] Social History Tobacco Use Types [...] on filedocumented in this encounter Care Teams Sailboat Captain Relationship Specialty Start Date End Date Pcp, Unknown PCP - General 12/30/23 Myles Turcios MD [email or web address] Internal Medicine 11/07/17 12/29/23 Amalia Saenz NP [address] [place] [address] 11/07/17 12/29/23 Feng Rolle MD [address] [place] [phone] [email or web address] Insurance Assigned Provider 09/20/20 05/23/21 Vicente Hale MD [address] [place] [address] [email or web address] Insurance Assigned Provider 05/23/21 08/23/21 Rogelio Suazo MD [address] [place] [phone] [email or web address] Insurance Assigned Provider 08/23/21 09/20/21 Feng Rolle MD [address] [place] [address] [email or web address] Insurance Assigned Provider 09/20/21 05/23/22 Nando Loja MD, PhD [address] [address] [email or web address] Consulting Provider Hematology 10/10/21 09/15/23 Vicente Hale MD [address] [place] [address] [email or web address] Insurance Assigned Provider 05/23/22 08/21/22 Malina Wheeler PA-C [address] [place] [address] [email or web address] Physician Ship Unloader Hematology 07/05/22 12/29/23 documented as of this encounter Additional Source Comments The information contained in this document represents components of the legal health record. It is not the complete legal health record.[facility]
--- OUTSIDE RECORDS SUMMARY | 2025-05-27 10:24 | XMS_ITS | Encounter Summary ---
Author Organization [facility] Address [address] [facility] [address] [place] [address] Phone Care Team Providers Care Compensation Intern Name Role Phone Kavita Stock CNP Primary Care Provider [phone] Myles Turcios MD Unavailable [phone] Amalia Saenz NP Unavailable Vicente Hale MD Unavailable [phone] Feng Rolle MD Unavailable [phone] Vicente Hale MD Unavailable [phone] Feng Rolle MD Unavailable [phone] Vicente Hale MD Unavailable [phone] Rogelio Suazo MD Unavailable [facility] Unavailable Nando Loja MD, PhD Unavailable Vicente Hale MD Unavailable [phone] Malina Wheeler PA-C Unavailable Pcp, Unknown Primary Care Provider Unavailabl e Encounter Details Date Type Department Care Team (Late st Contact Info) Description 06/07/2018 Ancillary Orders Virtual Department [address] [place] [address] Aminata Koch, ZULY [address] [place] [address] Paresthesia Social History Tobacco Use Types [...] paresthesias/numbness. . POS - [id number] Aminata Koch INSURANCE SPECIALIST IMG CT HEAD/NECK Final Re sult documented in this encounter Visit Diagnoses Diagnosis Paresthesia Disturbance of skin sensation Paresthesia Disturbance of skin sensation documented in this encounter Care Teams Compensation Intern Relationship Specialty Start Date End Date Kavita Stock CNP [address] [place] [address], [address] [place] [address] [email or web address] PCP - General Family Medicine 11/07/17 06/19/18 Pcp, Unknown PCP - General 12/30/23 Myles Turcios MD [address] [place] [address], [address] [place] [address] [email or web address] Internal Medicine 11/07/17 12/29/23 Amalia Saenz NP [address] [place] [address] 11/07/17 12/29/23 Vicente Hale MD [address] [place] [address] [email or web address] Insurance Assigned Provider 04/22/18 05/24/20 Feng Rolle MD [address] [place] [address] [email or web address] Insurance Assigned Provider 05/24/20 08/23/20 Vicente Hale MD [address] [place] [address] [email or web address] Insurance Assigned Provider 08/23/20 09/20/20 Feng Rolle MD [address] [place] [address] [email or web address] Insurance Assigned Provider 09/20/20 05/23/21 Vicente Hale MD [address] [place] [address] [email or web address] Insurance Assigned Provider 05/23/21 08/23/21 Rogelio Suazo MD [address] [place] [address] [address] [place] [phone] [email or web address] Insurance Assigned Provider 08/23/21 09/20/21 Feng Rolle MD [address] [place] [address] Insurance Assigned Provider 09/20/21 05/23/22 Nando Loja MD, PhD [address] [address] [email or web address] Consulting Provider Hematology 10/10/21 09/15/23 Vicente Hale MD [address] [place] [address] Insurance Assigned Provider 05/23/22 08/21/22 Malina Wheeler PA-C [address] [place] [address] Physician Packing Tractor Machine Operator Hematology 07/05/22 12/29/23 documented as of this encounter Additional Source Comments The information contained in this document represents components of the legal health record. It is not the complete legal health record.[facility]
--- OUTSIDE RECORDS SUMMARY | 2025-05-27 10:24 | XMS_ITS | Encounter Summary ---
Author Organization [facility] Address [address] [facility] [address] [place] [address] Phone Care Team Providers Care Painter [place] Name Role Phone Myles Turcios MD Unavailable [phone] Amalia Saenz NP Unavailable Feng Rolle MD Unavailable [phone] Vicente Hale MD Unavailable [phone] Rogelio Suazo MD Unavailable [facility] MD Unavailable [phone] Nando Loja MD, PhD Unavailable Vicente Hale MD Unavailable [phone] Malina Wheeler PA-C Unavailable Pcp, Unknown Primary Care Provider Unavailabl e Encounter Details Date Type Department Care Team (Latest Contact Info) Description 05/11/2021 Transcribe Orders [facility] [place] [address] [phone] Pancho Spence MD [address] [address] 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 14(L) 20 - 55 % [facility] Blood 05/11/2021 9:20 AM EDT 05/11/2021 9:25 AM EDT us Pancho Spence MD LAB BLOOD BKR ORDERABLES Final R esult [address] [address] * (ABNORMAL) CBC (05/11/2021 9:20 AM EDT) WBC 7.31 4.00 - 11.00 K/uL [facility] RBC 5.69 4.23 - 5.82 M/uL [facility] HGB 13.3(L) 13.4 - 17.5 g/dL [facility] HCT 42.1 37.0 - 51.0 % [facility] PLT 258 140 - 430 K/uL [facility] MCV 74.0(L) 78.0 - 97.0 fL [facility] MCH 23.4(L) 25.0 - 33.0 pg [facility] MCHC 31.6(L) 32.0 - 36.0 g/dL [facility] RDW 18.5(H) 11.0 - 15.0 % [facility] MPV 10.7 8.4 - 12.8 fl [facility] NRBC 0.00 0 /100 WBCs [facility] ABSOLUTE NRBC 0.00 0 K/uL [facility] Blood 05/11/2021 9:20 AM EDT 05/11/2021 9:25 AM EDT us Pancho Spence MD LAB BLOOD BKR ORDERABLES Final R esult [facility] [address] [place] [address] documented in this encounter Visit Diagnoses Diagnosis Washington's esophagus without dysplasia- Primary Gastroesophageal reflux disease with esophagitis, unspecified whether hemorrhage Rectal bleeding Hemorrhage of rectum and anus Bleeding internal hemorrhoids Internal hemorrhoids with other complication documented in this encounter Care Teams Painter Spring Relationship Specialty Start Date End Date Pcp, Unknown PCP - General 12/30/23 Myles Turcios MD [email or web address] Internal Medicine 11/07/17 12/29/23 Amalia Saenz NP [address] [place] [address] 11/07/17 12/29/23 Feng Rolle MD [address] [place] [address] [email or web address] Insurance Assigned Provider 09/20/20 05/23/21 Vicente Hale MD [address] [place] [address] [email or web address] Insurance Assigned Provider 05/23/21 08/23/21 Rogelio Suazo MD [address] [place] [phone] [email or web address] Insurance Assigned Provider 08/23/21 09/20/21 Feng Rolle MD [address] [place] [address] [email or web address] Insurance Assigned Provider 09/20/21 05/23/22 Nando Loja MD, PhD [address] [place] [address] [email or web address] Consulting Provider Hematology 10/10/21 09/15/23 Vicente Hale MD [address] [place] [address] [email or web address] Insurance Assigned Provider 05/23/22 08/21/22 Malina Wheeler PA-C [address] [place] [email or web address] Physician Sharples Machine Operator Hematology 07/05/22 12/29/23 documented as of this encounter Additional Source Comments The information contained in this document represents components of the legal health record. It is not the complete legal health record.[facility]
--- OUTSIDE RECORDS SUMMARY | 2025-05-27 10:24 | XMS_ITS | Encounter Summary ---
Author Organization [facility] Address [address] [place] [address] [place] [address] Phone Care Team Providers Care Energy Trader Name Role Phone Myles Turcios MD Unavailable Amalia Saenz NP Unavailable [phone] Nando Loja MD, PhD Unavailable [phone] Malina Wheeler PA-C Unavailable [phone] Pcp, Unknown Primary Care Provider Unavailabl e Encounter Details Date Type Department Care Team (Late st Contact Info) Description 04/14/2023 Procedure Pass [facility] Endoscopy Admitting Dept Virtual Department [address] [place] [address] [phone] Social History Tobacco Use Types Packs/Day Years [...] on filedocumented in this encounter Care Teams Energy Trader Relationship Specialty Start Date End Date Pcp, Unknown PCP - General 12/30/23 Myles Turcios MD [email or web address] Internal Medicine 11/07/17 12/29/23 Amalia Saenz NP [address] [place] [address] 11/07/17 12/29/23 Nando Loja MD, PhD [address] [place] [phone] [email or web address] Consulting Provider Hematology 10/10/21 09/15/23 Mailna Wheeler PA-C [address] [place] [address] [email or web address] Physician Washhouse Hand Hematology 07/05/22 12/29/23 documented as of this encounter Additional Source Comments The information contained in this document represents components of the legal health record. It is not the complete legal health record.[facility]
--- OUTSIDE RECORDS SUMMARY | 2025-05-27 10:24 | XMS_ITS | Encounter Summary ---
Author Organization [facility] Address [address] [facility] [address] [place] [id number] Phone Care Team Providers Care Home Performance Laborer Name Role Phone Myles Turcios MD Unavailable Amalia Saenz NP Unavailable Vicente Hale MD Unavailable [phone] [facility]available Vicente Hale MD Unavailable [phone] [facility] Unavailable [phone] Vicente Hale MD Unavailable [phone] Rogelio Suazo MD Unavailable Feng Rolle MD Unavailable Nando Loja MD, PhD Unavailable Vicente Hale MD Unavailable [phone] Malina Wheeler PA-C Unavailable Pcp, Unknown Primary Care Provider Unavailabl e Encounter Details Date Type Department Care Team (Late st Contact Info) Description 02/12/2020 Transcribe Orders [facility] Department [address], [place] [id number] Vicente Hale MD [address] [place] [address] [email or web address] Encounter for laboratory testing for COVID-19 virus [...] 12:54 PM EDT) Specimen Source NASOPHARYNGEAL SWAB (SAMPLE TESTER GRINDER) [facility] COVID Testing Status Sent to [facility] Other 02/16/2020 12:5 4 PM EDT 02/16/2020 1:57 PM EDT us Vicente Hale MD LAB GENERAL ORDERABLES Final Re sult [facility] [address] [place] [address] documented in this encounter Visit Diagnoses Diagnosis Encounter for laboratory testing for COVID-19 virus- Primary documented in this encounter Care Teams Home Performance Laborer Relationship Specialty Start Date End Date Pcp, Unknown PCP - General 12/30/23 Myles Turcios MD [email or web address] Internal Medicine 11/07/17 12/29/23 Amalia Saenz NP [address] [place] [id number] 11/07/17 12/29/23 Vicente Hale MD [address] [place] [id number] [email or web address] Insurance Assigned Provider 04/22/18 05/24/20 Feng Rolle MD [address] [place] [phone] [email or web address] Insurance Assigned Provider 05/24/20 08/23/20 Vicente Hale MD [address] [place] [phone] [email or web address] Insurance Assigned Provider 08/23/20 09/20/20 Feng Rolle MD [address] [place] [address] [email or web address] Insurance Assigned Provider 09/20/20 05/23/21 Vicente Hale MD [address] [place] [address] [email or web address] Insurance Assigned Provider 05/23/21 08/23/21 Rogelio Suazo MD [address] [place] [address] [place] [phone] [email or web address] Insurance Assigned Provider 08/23/21 09/20/21 Feng Rolle MD [address] [place] [address] [email or web address] Insurance Assigned Provider 09/20/21 05/23/22 Nando Loja MD, PhD [address] [address] [email or web address] Consulting Provider Hematology 10/10/21 09/15/23 Vicente Hale MD [address] [place] [phone] [email or web address] Insurance Assigned Provider 05/23/22 08/21/22 Malina Wheeler PA-C [address] [place] [address] [email or web address] Physician Face Man Hematology 07/05/22 12/29/23 documented as of this encounter Additional Source Comments The information contained in this document represents components of the legal health record. It is not the complete legal health record.[facility]
== END 2025-05-27 10:04 | disposition home or self-care (01) ==
LOC: HO.HUSH 09:25
PROVIDERS: PCP Nurse Practitioner Family; Visit Provider Nurse Practitioner Family
DX: N52.9 Male erectile dysfunction, unspecified (principal)
CPT/HCPCS: 99213

== ENCOUNTER → 2025-05-27 09:24 | Outpatient (BNVA) | payer OTHER, SELFPAY | PROVIDERS: PCP Nurse Practitioner Family; Visit Provider Nurse Practitioner Family | DX: N52.9 Male erectile dysfunction, unspecified (principal) | CPT/HCPCS: 99212 ==